=== PATIENT | female | born 1985 | race Caucasian/White ===

== ENCOUNTER 2018-09-17 14:07 | Emergency (ER) | payer BC ==
--- NOTE | 2018-09-17 15:08 | RAD ---
LEFT FOOT THREE VIEWS: History: Trauma. Foot pain. FINDINGS/IMPRESSION: No fracture or dislocation is seen. POS: OFF
--- NOTE | 2018-09-17 15:10 | RAD ---
RIGHT FOOT THREE VIEWS: History: Trauma. Right foot pain. FINDINGS/IMPRESSION: No acute fracture or dislocation is identified. POS: OFF
--- NOTE | 2018-09-17 15:11 | RAD ---
LEFT ANKLE THREE VIEWS: History: Trauma. Pain. FINDINGS/IMPRESSION: Ankle mortise is maintained. No acute fracture or dislocation is seen. POS: OFF
--- NOTE | 2018-09-17 15:11 | RAD ---
RIGHT LEG TWO VIEWS: History: Trauma. Right leg pain. FINDINGS/IMPRESSION: The right tibia and fibula appear intact. POS: OFF
--- NOTE | 2018-09-17 15:12 | RAD ---
RIGHT ANKLE THREE VIEWS: History: Trauma. Right knee pain. FINDINGS/IMPRESSION: The ankle mortise is maintained. NO fracture or dislocation is seen. Soft tissue swelling is present. POS: OFF
[2018-09-17] MEDS ORDERED: Morphine 4 MG/ML VIAL ONE (15:13)
--- NOTE | 2018-09-17 15:13 | RAD ---
RIGHT KNEE FOUR VIEWS: History: Trauma. Right knee pain. FINDINGS/IMPRESSION: No fracture or dislocation is seen. No hemarthrosis is identified. There are post op changes of ACL r epair. POS: OFF
== END 2018-09-17 16:39 | disposition home or self-care (01) ==
LOC: ERS 14:07
DX: S90.01XA Contusion of right ankle, initial encounter (principal); W20.8XXA Other cause of strike by thrown, projected or falling object, initial encounter
CPT/HCPCS: 96374; J2270

== ENCOUNTER 2018-09-28 15:58 | Outpatient (CLI) | payer BC ==
--- NOTE | 2018-09-28 16:57 | RAD ---
RIGHT TIBIA AND FIBULAR TWO VIEWS: HISTORY: Fall with injury to right lower extremity. FINDINGS: No evidence of fracture. No osseous abnormality identified. IMPRESSION: No acute findings. POS: YANET
--- NOTE | 2018-09-28 17:05 | RAD ---
RIGHT FOOT THREE VIEWS: HISTORY: Fall with injury to right foot. FINDINGS: The tarsals appear unremarkable. The tarsals appear intact. The metatarsals and phalanges appear in tact. No acute fracture identified. IMPRESSION: No acute abnormality. POS: GRACIELA
== END 2018-09-28 15:59 | disposition home or self-care (01) ==
LOC: SCSRAD 15:58
PROVIDERS: ATTEND Family Medicine
DX: S80.11XD Contusion of right lower leg, subsequent encounter (principal)

== ENCOUNTER 2018-12-31 09:58 | Outpatient (CLI) | payer BC ==
--- NOTE | 2018-12-31 13:22 | MRI ---
MRI Lower Ext Jt Rt WO Con History: [S93.401D injury] Comparison: Foot radiographs September 28, 2018 Findings: Ligaments: The craniad TFL [employer] ATFL are intact. The ATFL is torn. The CFL is torn. Superficial and deep deltoid ligaments are intact. Superomedial band the spring ligament is intact as well as the inferior longitudinal and medial plantar oblique. There are small ganglion pseudocysts of the navicular cuneiform joint. Limited evaluation of the Lisfranc ligament appears to be intact. Tendons: Mild increased fluid signal within the flexor digitorum or flexor hallucis longus tendons. T he extensor tendons are intact. Tenosynovial fluid is primarily proximal to the knot of Mervin. Bones: There is a contusion of the anterior margin of the distal tibial metadiaphysis without signifi cant subcortical extension. This likely a direct contusion. No osteochondral injury of the talus. Subtle contusion of the medial navicular. Muscles: Muscle signal and bulk is normal. Impression: 1. Direct contusion of the anterior margin distal tibial metadiaphysis without cortical step-off. The re is also healing subtle marrow contusion of the navicular. 2. Intact spring ligament as well as Lisfranc ligament. 3. Mild tenosynovitis of the flexor tendons. 4. Torn ATFL and CFL.
== END 2018-12-31 09:59 | disposition home or self-care (01) ==
LOC: SCSMRI 09:58
PROVIDERS: ATTEND Family Medicine
DX: S93.401D Sprain of unspecified ligament of right ankle, subsequent encounter (principal); M65.861 Other synovitis and tenosynovitis, right lower leg; S90.31XD Contusion of right foot, subsequent encounter; S80.11XD Contusion of right lower leg, subsequent encounter